=== PATIENT | female | born 1975 | race Caucasian/White ===

== ENCOUNTER 2024-02-16 19:16 | Emergency (ER) | payer MEDICARE, OTHER ==
[~2024-02-16] VITALS: Ht 172.7 cm; Wt 100.0 kg
[~2024-02-16 19:16] MED LIST: BICARB BLADIN; DIAZ10TA2 PO; ELMIRON PO; ESTR1CRE PV; FLOM0.4C39 PO; HEP BLADIN; LIDO BLADIN; LIDO3CRE14 EXT; METH10TA2 PO; OXYC-208 PO; PYRI200T2 PO; SOD BLADIN; TYLE325T5 PO; UROCTAB2 PO; VITA500S3 SL; [UNRECOGNIZED DRUG - CODE] PO; [UNRECOGNIZED DRUG - OTHER]; [UNRECOGNIZED DRUG - OTHER] PO; [UNRECOGNIZED DRUG - OTHER] PO
[2024-02-16 19:38] VITALS: TEMP 97
[2024-02-16] MEDS: SUCRALFATE SUSP 1GM/10ML UD PO ONE (19:55)
[2024-02-16] MEDS: ONDANSETRON 4MG 2ML VIAL IV ONE (19:55)
[2024-02-16] MEDS: PANTOPRAZOLE 40MG VIAL IV ONE (19:55)
[2024-02-16] MEDS: METHADONE 10MG TAB PO ONE (20:50)
[2024-02-16 20:54] LABS: BASO # 0.1 10^3/uL (0.0-0.2); BASO % 0.7 % (0.0-1.0); EOS # 0.1 10^3/uL (0.0-0.5); EOS % 1.2 % (0.0-3.0); HEMATOCRIT 31.2 % (36.0-47.0); HEMOGLOBIN 8.8 g/dl (12.0-15.5); LYMPH # 2.3 10^3/uL (1.5-5.0); LYMPH % 25.3 % (24.0-44.0); MEAN CORPUSCULAR HEMOGLOBIN 17.7 pg (27.0-33.0); MEAN CORPUSCULAR HGB CONC 28.2 g/dl (32.0-36.5); MEAN CORPUSCULAR VOLUME 62.8 fl (80.0-96.0); MONO # 0.8 10^3/uL (0.0-0.8); MONO % 8.6 % (2.0-8.0); NEUTROPHILS # 5.8 10^3/uL (1.5-8.5); NEUTROPHILS % 63.9 % (36.0-66.0); PLATELET COUNT, AUTOMATED 302 10^3/uL (150-450); RED BLOOD COUNT 4.97 10^6/uL (4.00-5.40)
[2024-02-16 21:23] LABS: CK-MB VALUE MASS < 1.0 NG/ML (<3.6)
[2024-02-16 21:24] LABS: CPK CREATINE PHOSPHOKINASE 35 U/L (34-145); MB/CK RELATIVE INDEX 2.85 (< OR =4)
[2024-02-16 21:25] LABS: BLOOD UREA NITROGEN 8 MG/DL (9-23); CALCIUM LEVEL 8.8 MG/DL (8.5-10.1); CARBON DIOXIDE LEVEL 26 MMOL/L (20-31); CHLORIDE LEVEL 106 MMOL/L (98-107); GLOMERULAR FILTRATION RATE > 60.0 (>58); GLUCOSE, FASTING 97 MG/DL (60-100); MAGNESIUM LEVEL 1.8 MG/DL (1.8-2.4); POTASSIUM SERUM 3.8 MMOL/L (3.5-5.1); SODIUM LEVEL 140 MMOL/L (136-145)
[2024-02-16 21:27] LABS: FREE T4 1.03 NG/DL (0.89-1.76)
[2024-02-16 21:48] LABS: HCG, SERUM QUALITATIVE NEGATIVE (NEGATIVE)
[2024-02-16] MEDS ORDERED: ISOVUE-370 76% 100ML VIAL As Ordered ONE (21:52)
[2024-02-16] MEDS: NS 1,000 ML IV ONE (22:10)
[2024-02-16] MEDS: METOCLOPRAMIDE INJ 10MG/2ML VIAL IV ONE (23:40)
[2024-02-17 02:26] VITALS: BP 130/72; O2SAT 98
== END 2024-02-17 02:44 | disposition short-term general hospital (02) ==
LOC: M ED 19:16
DX: K92.0 Hematemesis (principal); R55 Syncope and collapse; R10.13 Epigastric pain; Z98.84 Bariatric surgery status; Z88.5 Allergy status to narcotic agent; Z88.8 Allergy status to other drugs, medicaments and biological substances; Z79.899 Other long term (current) drug therapy
CPT/HCPCS: 70450; 71045; 74177; 80048; 82550; 82553; 83605; 83735; 84439; 84443; 84484; 84703; 85025; 93005; 93041; 94760; 96361; 96374; 96375; 99285; J2405; J2470; J2765; Q9967

== ENCOUNTER 2024-05-01 20:34 | Emergency (ER) | payer MEDICARE, OTHER ==
[~2024-05-01] VITALS: Ht 172.7 cm; Wt 86.4 kg
[2024-05-01 20:49] VITALS: TEMP 98.5
[2024-05-01 21:10] LABS: BASO # 0.1 10^3/uL (0.0-0.2); BASO % 0.5 % (0.0-1.0); EOS # 0.1 10^3/uL (0.0-0.5); EOS % 1.1 % (0.0-3.0); HEMATOCRIT 32.7 % (36.0-47.0); HEMOGLOBIN 9.5 g/dl (12.0-15.5); LYMPH # 3.5 10^3/uL (1.5-5.0); LYMPH % 38.7 % (24.0-44.0); MEAN CORPUSCULAR HEMOGLOBIN 18.3 pg (27.0-33.0); MEAN CORPUSCULAR HGB CONC 29.1 g/dl (32.0-36.5); MEAN CORPUSCULAR VOLUME 63.1 fl (80.0-96.0); MONO # 0.9 10^3/uL (0.0-0.8); NEUTROPHILS # 4.5 10^3/uL (1.5-8.5); NEUTROPHILS % 49.5 % (36.0-66.0); PLATELET COUNT, AUTOMATED 288 10^3/uL (150-450); RED BLOOD COUNT 5.18 10^6/uL (4.00-5.40); WHITE BLOOD COUNT 9.1 10^3/uL (4.0-10.0)
[2024-05-01] MEDS: PROMETHAZINE 25MG/ML 1ML VIAL IV ONE (21:22)
[2024-05-01 21:37] LABS: ETHYL ALCOHOL (ETHANOL) < 0.003 % (0.000-0.010)
[2024-05-01 21:51] LABS: ALBUMIN 3.6 G/DL (3.2-5.2); ALKALINE PHOSPHATASE 47 U/L (35-104); ALT/SGPT 24 U/L (7.0-40); AST/SGOT 44 U/L (<34); BILIRUBIN,DIRECT 0.2 MG/DL (<0.4); BILIRUBIN,TOTAL 0.5 MG/DL (0.3-1.2); BLOOD UREA NITROGEN < 5 MG/DL (9-23); CALCIUM LEVEL 8.9 MG/DL (8.5-10.1); CARBON DIOXIDE LEVEL 24 MMOL/L (20-31); CHLORIDE LEVEL 108 MMOL/L (98-107); CK-MB VALUE MASS < 1.0 NG/ML (<3.6); CPK CREATINE PHOSPHOKINASE 60 U/L (34-145); CREATININE FOR GFR 0.61 MG/DL (0.55-1.30); GLOMERULAR FILTRATION RATE > 60.0 (>58); GLUCOSE, FASTING 88 MG/DL (60-100); LIPASE 34 U/L (12-53); MB/CK RELATIVE INDEX 1.66 (< OR =4); POTASSIUM SERUM 5.6 MMOL/L (3.5-5.1); SODIUM LEVEL 139 MMOL/L (136-145); TOTAL PROTEIN 6.6 G/DL (5.7-8.2)
[2024-05-01 22:51] LABS: CK-MB VALUE MASS < 1.0 NG/ML (<3.6); CPK CREATINE PHOSPHOKINASE 78 U/L (34-145); MB/CK RELATIVE INDEX 1.28 (< OR =4)
[2024-05-01] MEDS: GASTROGRAFIN SOLUTION 30ML PO SCH (23:14)
[2024-05-01 23:25] LABS: AMPHETAMINES LEVEL URINE NEGATIVE (NEGATIVE); BARBITURATES URINE NEGATIVE (NEGATIVE); CANNABINOIDS URINE NEGATIVE (NEGATIVE); COCAINE METABOLITE URINE NEGATIVE (NEGATIVE); METHADONE URINE NEGATIVE (NEGATIVE); OPIATES URINE NEGATIVE (NEGATIVE); PHENCYCLIDINE URINE NEGATIVE (NEGATIVE)
[2024-05-01 23:26] LABS: BENZODIAZEPINES URINE POSITIVE (NEGATIVE)
[2024-05-02] MEDS ORDERED: ISOVUE-370 76% 100ML VIAL As Ordered ONE (00:20)
[2024-05-02] MEDS ORDERED: PROM50TA4 PO (01:22)
[2024-05-02 01:30] VITALS: BP 111/71; O2SAT 96
== END 2024-05-02 01:47 | disposition home or self-care (01) ==
LOC: M ED 20:34 → EDBD 20:34 → M ED 05-02 01:47
DX: R10.9 Unspecified abdominal pain (principal); N83.291 Other ovarian cyst, right side; R94.31 Abnormal electrocardiogram [ECG] [EKG]; Z88.5 Allergy status to narcotic agent; Z79.1 Long term (current) use of non-steroidal anti-inflammatories (NSAID); Z79.899 Other long term (current) drug therapy
CPT/HCPCS: 74177; 80048; 80076; 80307; 81001; 82077; 82550; 82553; 83605; 83690; 84484; 85025; 87040; 93005; 93041; 96374; 99285; J2550; Q9963; Q9967

== ENCOUNTER 2024-05-27 10:23 | Inpatient (IN) | payer MEDICARE, OTHER ==
[~2024-05-27] VITALS: Ht 172.7 cm; Wt 88.1 kg
[~2024-05-27 10:23] MED LIST changes: +PROM50TA4 PO
[2024-05-27] MEDS: NS 2,590 ML in IV 1 EA IV ONE (10:52)
[2024-05-27 11:06] LABS: VENOUS BASE EXCESS -4.7 (-2.0-2.0); VENOUS HCO3 20.5 MMOL/L (23.0-27.0); VENOUS O2 SATURATION 75.6 % (60.0-80.0); VENOUS PARTIAL PRESSURE CO2 38.2 mmHg (38.0-50.0); VENOUS PARTIAL PRESSURE O2 44.1 mmHg (30.0-50.0); VENOUS PH 7.348 UNITS (7.330-7.430); VENOUS STANDARD HCO3 20.2 MMOL/L; VENOUS TOTAL CO2 21.7 MMOL/L (24.0-28.0)
[2024-05-27 11:11] LABS: BASO # 0.1 10^3/uL (0.0-0.2); BASO % 0.3 % (0.0-1.0); EOS # 0.1 10^3/uL (0.0-0.5); EOS % 0.4 % (0.0-3.0); HEMATOCRIT 33.6 % (36.0-47.0); HEMOGLOBIN 9.8 g/dl (12.0-15.5); LYMPH # 2.6 10^3/uL (1.5-5.0); MEAN CORPUSCULAR HEMOGLOBIN 18.7 pg (27.0-33.0); MEAN CORPUSCULAR HGB CONC 29.2 g/dl (32.0-36.5); MEAN CORPUSCULAR VOLUME 64.2 fl (80.0-96.0); MONO # 1.6 10^3/uL (0.0-0.8); MONO % 11.1 % (2.0-8.0); NEUTROPHILS % 69.9 % (36.0-66.0); PLATELET COUNT, AUTOMATED 279 10^3/uL (150-450); RED BLOOD COUNT 5.23 10^6/uL (4.00-5.40); WHITE BLOOD COUNT 14.4 10^3/uL (4.0-10.0)
[2024-05-27 11:42] LABS: ETHYL ALCOHOL (ETHANOL) < 0.003 % (0.000-0.010)
[2024-05-27 11:44] LABS: ALBUMIN 2.8 G/DL (3.2-5.2); ALKALINE PHOSPHATASE 54 U/L (35-104); ALT/SGPT 21 U/L (7.0-40); AST/SGOT 26 U/L (<34); BILIRUBIN,DIRECT 0.4 MG/DL (<0.4); BILIRUBIN,TOTAL 0.8 MG/DL (0.3-1.2); BLOOD UREA NITROGEN 20 MG/DL (9-23); CALCIUM LEVEL 8.6 MG/DL (8.5-10.1); CARBON DIOXIDE LEVEL 23 MMOL/L (20-31); CHLORIDE LEVEL 107 MMOL/L (98-107); CREATININE FOR GFR 0.94 MG/DL (0.55-1.30); GLOMERULAR FILTRATION RATE > 60.0 (>51); GLUCOSE, FASTING 88 MG/DL (60-100); POTASSIUM SERUM 4.3 MMOL/L (3.5-5.1); SALICYLATE LEVEL < 3.0 MG/DL (<30); SODIUM LEVEL 141 MMOL/L (136-145); TOTAL PROTEIN 5.8 G/DL (5.7-8.2)
[2024-05-27 11:46] LABS: HCG, SERUM QUALITATIVE NEGATIVE (NEGATIVE); THYROID STIMULATING HORMONE 0.512 uIU/ML (0.55-4.78)
[2024-05-27 11:50] LABS: CPK CREATINE PHOSPHOKINASE 37 U/L (34-145)
[2024-05-27 11:56] LABS: OSMOLALITY SERUM 295 MOSM/KG (275-295)
[2024-05-27 12:04] LABS: AMPHETAMINES LEVEL URINE NEGATIVE (NEGATIVE); BARBITURATES URINE NEGATIVE (NEGATIVE); COCAINE METABOLITE URINE NEGATIVE (NEGATIVE); METHADONE URINE NEGATIVE (NEGATIVE)
[2024-05-27 12:05] LABS: CANNABINOIDS URINE NEGATIVE (NEGATIVE); OPIATES URINE NEGATIVE (NEGATIVE); PHENCYCLIDINE URINE NEGATIVE (NEGATIVE)
[2024-05-27 12:06] LABS: BENZODIAZEPINES URINE POSITIVE (NEGATIVE)
[2024-05-27] MEDS: NS 1,000 ML IV SCH (14:12)
[2024-05-27] MEDS ORDERED: URELLE (14:20)
[2024-05-27] MEDS ORDERED: ONDA-282 PO (14:20)
[2024-05-27] MEDS ORDERED: TIZA1TAB12 PO (14:20)
[2024-05-27] MEDS ORDERED: FERA1TAB PO (14:20)
[2024-05-27] MEDS ORDERED: SUCR1ORA2 PO (14:20)
[2024-05-27] MEDS ORDERED: PROM50TA4 PO (14:20)
[2024-05-27] MEDS ORDERED: OMEP1CAP73 PO (14:20)
[2024-05-27] MEDS ORDERED: ZOLP10TA2 PO (14:20)
[2024-05-27] MEDS ORDERED: BPRO1LIQ PO (14:21)
[2024-05-27] MEDS ORDERED: B-1225002 SL (14:21)
[2024-05-27] MEDS ORDERED: HOME MED LIST COMPLETE! XX SCH (14:30)
[2024-05-27 14:59] LABS: INR 1.13; PROTHROMBIN TIME 14.8 SECONDS (12.5-14.5)
[2024-05-27] MEDS ORDERED: PILL CUTTER 1 EACH XX PRN (18:35)
[2024-05-27 18:39] VITALS: BP 118/63; TEMP 97.9; O2SAT 94
[2024-05-27 20:06] VITALS: BP 112/60; TEMP 98.1; O2SAT 98
[2024-05-27] MEDS: LORazepam 1 MG TAB PO PRN (20:31)
[2024-05-27] MEDS: BUPRENORPHINE/NALOXONE 8-2MG SUBLINGUAL TABLET(SUBOXONE) SL SCH (20:31)
[2024-05-27] MEDS: PANTOPRAZOLE 40MG VIAL IV SCH (20:32)
[2024-05-28 03:52] VITALS: BP 147/88; TEMP 98.1; O2SAT 91
[2024-05-28 05:58] LABS: HEMATOCRIT 33.1 % (36.0-47.0); HEMOGLOBIN 9.2 g/dl (12.0-15.5); MEAN CORPUSCULAR HEMOGLOBIN 18.4 pg (27.0-33.0); MEAN CORPUSCULAR HGB CONC 27.8 g/dl (32.0-36.5); MEAN CORPUSCULAR VOLUME 66.2 fl (80.0-96.0); PLATELET COUNT, AUTOMATED 235 10^3/uL (150-450); WHITE BLOOD COUNT 11.6 10^3/uL (4.0-10.0)
[2024-05-28 06:32] LABS: ALBUMIN 2.6 G/DL (3.2-5.2); ALKALINE PHOSPHATASE 54 U/L (35-104); ALT/SGPT 19 U/L (7.0-40); AST/SGOT 18 U/L (<34); BILIRUBIN,TOTAL 0.6 MG/DL (0.3-1.2); BLOOD UREA NITROGEN 13 MG/DL (9-23); CALCIUM LEVEL 8.2 MG/DL (8.5-10.1); CARBON DIOXIDE LEVEL 20 MMOL/L (20-31); CHLORIDE LEVEL 112 MMOL/L (98-107); CREATININE FOR GFR 0.67 MG/DL (0.55-1.30); GLOMERULAR FILTRATION RATE > 60.0 (>51); GLUCOSE, FASTING 63 MG/DL (60-100); POTASSIUM SERUM 3.8 MMOL/L (3.5-5.1); SODIUM LEVEL 141 MMOL/L (136-145); TOTAL PROTEIN 5.2 G/DL (5.7-8.2)
[2024-05-28] MEDS: DOXYCYCLINE HYCLATE 100MG TABLET PO SCH (08:18)
[2024-05-28] MEDS: CEFDINIR 300 MG CAP (OMNICEF) PO SCH (08:21)
[2024-05-28] MEDS ORDERED: ENOXAPARIN 40MG/0.4ML SYRINGE (J1650 PER 10MG) SC SCH (09:00)
[2024-05-28 12:00] VITALS: BP 147/88; TEMP 98.2; O2SAT 87
[2024-05-28 12:01] VITALS: O2SAT 91
[2024-05-28] MEDS ORDERED: OMEPRAZOLE 20MG CAP PO PRN (16:10)
[2024-05-28] MEDS ORDERED: zolPIDEM TARTRATE 5 MG TAB PO PRN (16:10)
[2024-05-28] MEDS ORDERED: tiZANidine 4 MG TAB PO PRN (16:10)
[2024-05-28] MEDS: ONDANSETRON 4MG 2ML VIAL IV PRN (16:14)
[2024-05-28] MEDS: SUCRALFATE SUSP 1GM/10ML UD PO PRN (17:14)
[2024-05-28] MEDS: PROMETHAZINE 25 MG TAB PO SCH (17:28)
[2024-05-28 20:00] VITALS: BP 138/80; TEMP 98.2; O2SAT 86
[2024-05-28] MEDS: OMEPRAZOLE 20MG CAP PO SCH (20:33)
[2024-05-28] MEDS: SUCRALFATE SUSP 1GM/10ML UD PO SCH (20:34)
[2024-05-28] MEDS ORDERED: OMEPRAZOLE 20MG CAP PO SCH (21:00)
[2024-05-29 04:00] VITALS: BP 138/80; TEMP 98.6; O2SAT 84
[2024-05-29 06:20] LABS: HEMATOCRIT 29.1 % (36.0-47.0); MEAN CORPUSCULAR HEMOGLOBIN 18.1 pg (27.0-33.0); MEAN CORPUSCULAR HGB CONC 27.5 g/dl (32.0-36.5); MEAN CORPUSCULAR VOLUME 65.8 fl (80.0-96.0); PLATELET COUNT, AUTOMATED 249 10^3/uL (150-450); RED BLOOD COUNT 4.42 10^6/uL (4.00-5.40)
[2024-05-29 06:43] LABS: ALBUMIN 2.3 G/DL (3.2-5.2); ALKALINE PHOSPHATASE 49 U/L (35-104); ALT/SGPT 16 U/L (7.0-40); AST/SGOT 13 U/L (<34); BILIRUBIN,TOTAL 0.3 MG/DL (0.3-1.2); BLOOD UREA NITROGEN < 5 MG/DL (9-23); CARBON DIOXIDE LEVEL 26 MMOL/L (20-31); CHLORIDE LEVEL 109 MMOL/L (98-107); CREATININE FOR GFR 0.57 MG/DL (0.55-1.30); GLOMERULAR FILTRATION RATE > 60.0 (>51); GLUCOSE, FASTING 79 MG/DL (60-100); POTASSIUM SERUM 3.8 MMOL/L (3.5-5.1); SODIUM LEVEL 142 MMOL/L (136-145); TOTAL PROTEIN 4.8 G/DL (5.7-8.2)
[2024-05-29 07:26] VITALS: O2SAT 92
[2024-05-29 09:08] LABS: IRON (FE) 8 UG/DL (50-170); PERCENT SATURATION 2.8 % (13.2-45.0); TOTAL IRON BINDING CAPACITY 287 UG/DL (250-425)
[2024-05-29 09:10] LABS: FERRITIN 11.9 NG/ML (7.3-270.7)
[2024-05-29 09:11] LABS: FOLATE 7.09 NG/ML (>5.4); VITAMIN B12 LEVEL 1616 PG/ML (211-911)
[2024-05-29] MEDS: ONDANSETRON 4MG ORAL DISINTEGRATING TAB SL SCH (09:13)
[2024-05-29 12:00] VITALS: BP 129/74; TEMP 98.4; O2SAT 90
[2024-05-29 20:00] VITALS: BP 118/71; TEMP 98.6; O2SAT 89
[2024-05-30] VITALS (7 sets, daily range): BP systolic 112–133; BP diastolic 65–88; TEMP 97.7–98.2; O2SAT 88–95
[2024-05-30 06:40] LABS: HEMATOCRIT 27.8 % (36.0-47.0); HEMOGLOBIN 7.8 g/dl (12.0-15.5); MEAN CORPUSCULAR HEMOGLOBIN 18.4 pg (27.0-33.0); MEAN CORPUSCULAR HGB CONC 28.1 g/dl (32.0-36.5); MEAN CORPUSCULAR VOLUME 65.6 fl (80.0-96.0); PLATELET COUNT, AUTOMATED 235 10^3/uL (150-450); RED BLOOD COUNT 4.24 10^6/uL (4.00-5.40); WHITE BLOOD COUNT 8.5 10^3/uL (4.0-10.0)
[2024-05-30 07:22] LABS: ALBUMIN 2.3 G/DL (3.2-5.2); ALKALINE PHOSPHATASE 43 U/L (35-104); ALT/SGPT 15 U/L (7.0-40); AST/SGOT 13 U/L (<34); BILIRUBIN,TOTAL 0.3 MG/DL (0.3-1.2); BLOOD UREA NITROGEN < 5 MG/DL (9-23); CALCIUM LEVEL 8.1 MG/DL (8.5-10.1); CARBON DIOXIDE LEVEL 29 MMOL/L (20-31); CHLORIDE LEVEL 107 MMOL/L (98-107); CREATININE FOR GFR 0.58 MG/DL (0.55-1.30); GLOMERULAR FILTRATION RATE > 60.0 (>51); GLUCOSE, FASTING 81 MG/DL (60-100); POTASSIUM SERUM 3.8 MMOL/L (3.5-5.1); SODIUM LEVEL 141 MMOL/L (136-145)
[2024-05-30] MEDS ORDERED: diphenhydrAMINE 50MG/ML VIAL IV PRN (14:50)
[2024-05-30] MEDS: diphenhydrAMINE 50MG/ML VIAL IV ONE (16:07)
[2024-05-30] MEDS: methylPREDNISolone 125MG 2ML VIAL IV ONE (16:07)
[2024-05-30] MEDS: IRON SUCROSE 25 MG in NS 23.75 ML IV ONE (16:36)
[2024-05-30] MEDS: IRON SUCROSE 175 MG in NS 100 ML IV ONE (17:33)
[2024-05-31 03:40] VITALS: BP 122/74; TEMP 97.7; O2SAT 93
[2024-05-31 07:56] LABS: HEMATOCRIT 28.7 % (36.0-47.0); HEMOGLOBIN 8.1 g/dl (12.0-15.5); MEAN CORPUSCULAR HEMOGLOBIN 18.6 pg (27.0-33.0); MEAN CORPUSCULAR HGB CONC 28.2 g/dl (32.0-36.5); MEAN CORPUSCULAR VOLUME 65.8 fl (80.0-96.0); PLATELET COUNT, AUTOMATED 231 10^3/uL (150-450); RED BLOOD COUNT 4.36 10^6/uL (4.00-5.40); WHITE BLOOD COUNT 9.1 10^3/uL (4.0-10.0)
[2024-05-31 08:24] LABS: ALBUMIN 2.5 G/DL (3.2-5.2); ALKALINE PHOSPHATASE 44 U/L (35-104); ALT/SGPT 13 U/L (7.0-40); AST/SGOT 8 U/L (<34); BILIRUBIN,TOTAL 0.3 MG/DL (0.3-1.2); BLOOD UREA NITROGEN < 5 MG/DL (9-23); CARBON DIOXIDE LEVEL 29 MMOL/L (20-31); CHLORIDE LEVEL 107 MMOL/L (98-107); CREATININE FOR GFR 0.55 MG/DL (0.55-1.30); GLOMERULAR FILTRATION RATE > 60.0 (>51); GLUCOSE, FASTING 86 MG/DL (60-100); POTASSIUM SERUM 4.1 MMOL/L (3.5-5.1); SODIUM LEVEL 143 MMOL/L (136-145); TOTAL PROTEIN 5.1 G/DL (5.7-8.2)
[2024-05-31] MEDS: DOCUSATE SODIUM 100MG CAPSULE PO SCH (11:06)
[2024-05-31 11:43] VITALS: BP 136/87; TEMP 97.9; O2SAT 96
[2024-05-31] MEDS ORDERED: COLA100C5 PO (16:21)
[2024-05-31] MEDS ORDERED: SUCR1TA PO (16:21)
[2024-05-31] MEDS ORDERED: BUPR1SUB5 SL (16:21)
[2024-05-31] MEDS ORDERED: OMEP-173 PO (16:21)
[2024-05-31] MEDS ORDERED: ONDA-282 SL (16:21)
[2024-05-31] MEDS ORDERED: CEFD300CAP PO (16:21)
[2024-05-31] MEDS ORDERED: SUBO8MIS SL (16:34)
[2024-05-31] MEDS: ONDANSETRON 4MG TAB PO ONE (18:10)
== END 2024-05-31 18:35 | disposition home health service (06) | DRG 917 ==
LOC: EDBD 10:23 → M ED 10:23 → M ED INP 10:24 → OBSVTOIN 15:11 → M MSPAV 18:39
PROVIDERS: ADMIT Internal Medicine; ATTEND Internal Medicine
DX: T42.4X2A Poisoning by benzodiazepines, intentional self-harm, initial encounter (principal); G92.8 Other toxic encephalopathy; J18.9 Pneumonia, unspecified organism; F11.20 Opioid dependence, uncomplicated; T45.0X2A Poisoning by antiallergic and antiemetic drugs, intentional self-harm, initial encounter; T42.8X2A Poisoning by antiparkinsonism drugs and other central muscle-tone depressants, intentional self-harm, initial encounter; I95.2 Hypotension due to drugs; N30.10 Interstitial cystitis (chronic) without hematuria; M79.7 Fibromyalgia; G89.4 Chronic pain syndrome; G93.32 Myalgic encephalomyelitis/chronic fatigue syndrome; E87.6 Hypokalemia; D50.9 Iron deficiency anemia, unspecified; F32.A Depression, unspecified; F41.9 Anxiety disorder, unspecified; K27.9 Peptic ulcer, site unspecified, unspecified as acute or chronic, without hemorrhage or perforation; Z66 Do not resuscitate; E86.0 Dehydration; R94.31 Abnormal electrocardiogram [ECG] [EKG]; Z79.899 Other long term (current) drug therapy; Z88.5 Allergy status to narcotic agent; Z98.84 Bariatric surgery status

== ENCOUNTER → 2024-07-19 | Outpatient (CLI) | payer MEDICARE, OTHER ==
[~2024-07-19] VITALS: Ht 175.3 cm; Wt 84.8 kg
[~2024-07-19] MED LIST changes: +B-1225002 SL; +BPRO1LIQ PO; +BUPR1SUB5 SL; +CEFD300CAP PO; +COLA100C5 PO; +DULO1CAP6 PO; +FERA1TAB PO; +MIRA3350 PO; +MOM30SS PO; +OMEP-173 PO; +OMEP1CAP73 PO; +ONDA-282 PO; +ONDA-282 SL; +SENN8.6T58 PO; +SUBO8MIS SL; +SUCR1ORA2 PO; +SUCR1TA PO; +TIZA1TAB12 PO; +TRAZ-252 PO; +URELLE; +ZOLP10TA2 PO
[2024-07-19 15:00] VITALS: BP 142/100; O2SAT 99
== END ==
LOC: M PAL 14:56
PROVIDERS: ATTEND Family Medicine
DX: Z51.5 Encounter for palliative care (principal); N30.10 Interstitial cystitis (chronic) without hematuria; G89.29 Other chronic pain; Z66 Do not resuscitate; Z79.891 Long term (current) use of opiate analgesic; Z88.5 Allergy status to narcotic agent

== ENCOUNTER → 2024-09-19 | Outpatient (CLI) | payer MEDICARE, OTHER ==
[~2024-09-19] VITALS: Ht 172.7 cm; Wt 86.0 kg
[~2024-09-19] MED LIST changes: +ASHW300T2 PO; +CYCL-707 PO; +OLAN1TAB16 PO; +OXYC10TA12 PO
[2024-09-19 13:17] VITALS: BP 136/96; O2SAT 98
== END ==
LOC: M PAL 12:57
PROVIDERS: ATTEND Family Medicine
DX: Z51.5 Encounter for palliative care (principal); Z66 Do not resuscitate; N30.10 Interstitial cystitis (chronic) without hematuria; Z79.891 Long term (current) use of opiate analgesic; Z88.5 Allergy status to narcotic agent; Z79.899 Other long term (current) drug therapy

== ENCOUNTER → 2025-03-20 | Outpatient (CLI) | payer MEDICARE, OTHER ==
[~2025-03-20] VITALS: Ht 172.7 cm; Wt 94.5 kg
[~2025-03-20] MED LIST changes: +5-HT1CAP PO; +CYCL5TAB4 PO; +PEA PO; +R LI PO; +RA M500C PO; -SUCR1ORA2 PO; +SUCR1ORA20 PO; +THIA100TA PO; +ZOLP10TA11 PO; -ZOLP10TA2 PO; +[UNRECOGNIZED DRUG - OTHER] PO; +[UNRECOGNIZED DRUG - REMARK] PO
[2025-03-20 13:15] VITALS: BP 155/112; O2SAT 98
== END ==
LOC: M PAL 12:51
PROVIDERS: ATTEND Physician Assistant
DX: Z51.5 Encounter for palliative care (principal); Z66 Do not resuscitate; N30.10 Interstitial cystitis (chronic) without hematuria; Z79.899 Other long term (current) drug therapy; Z88.5 Allergy status to narcotic agent; Z79.891 Long term (current) use of opiate analgesic

== ENCOUNTER → 2025-06-05 | Outpatient (CLI) | payer MEDICARE, OTHER ==
[~2025-06-05] VITALS: Ht 175.3 cm; Wt 94.8 kg
[2025-06-05 13:16] VITALS: BP 110/64; O2SAT 98
== END ==
LOC: M PAL 12:50
PROVIDERS: ATTEND Physician Assistant
DX: Z51.5 Encounter for palliative care (principal); Z66 Do not resuscitate; N30.10 Interstitial cystitis (chronic) without hematuria; G89.29 Other chronic pain; Z79.891 Long term (current) use of opiate analgesic; Z88.5 Allergy status to narcotic agent; Z79.899 Other long term (current) drug therapy; Z79.83 Long term (current) use of bisphosphonates